=== PATIENT | female | born 1965 | race Caucasian/White ===

== ENCOUNTER 2025-04-15 07:09 | Outpatient (RCR) | payer OTHER, SELFPAY ==
--- NOTE | 2024-11-05 14:31 | PC.NURSE ---
Cardiac Rehab Orientation The following information was reviewed with the patient during Orientation: [ x] 1. Program rights and responsibilities [ x] 2. Attendance Policy [ x] 3. Patients insurance coverage and copayment [ x] 4. Patients current medication list, and purpose for medications [ x] 5. Patients Qualifying diagnosis and procedure history [ x] 6. Patient health history Patients completed the following forms during Orientation: [ x] 1. Knowledge Test [ x] 2. PHQ 9 [ x] 3. SF 36 [ x] 4. Rate your plate [ ] 5. COPD Assessment [ ] 6. Tobacco Use and Dependence Questionnaire Additional Comments: First visit scheduled for nov 07 2024 at 10 am
--- NOTE | 2024-11-06 07:43 | CR1_ITS ---
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 Electronically Signed On 11-11-2024 7:52:44 EDT by Shivam Brantley
--- NOTE | 2024-11-07 08:50 | CR1_ITS ---
The 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 Electronically Signed On 11-11-2024 7:53:03 EDT by Shivam Brantley
--- NOTE | 2024-12-05 07:54 | CR1_ITS ---
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 Electronically Signed On 12-05-2024 10:59:06 EDT by Shivam Brantley
--- NOTE | 2024-12-30 14:23 | CR1_ITS ---
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 Being inactive will further exacerbate her weakness. She is encouraged to return to cardiac rehablitation. Electronically Signed On 01-08-2025 10:19:13 EDT by Shivam Brantley
--- NOTE | 2025-01-30 08:45 | CR1_ITS ---
The [facility] Test Date: 2025-01-30 Pat Name: BASSEM JACOBS Department: Room: - Gender: Female Audiovisual Technician: : 1965 Requested By: CLAUS ORTEGA Order Number: [id number] Anca MD: CAROLE WOLF M.D. Interpretive Statements Patient may continue cardiac rehab as outlined in the treatment plan. Electronically Signed On 02-07-2025 10:23:44 EDT by CAROLE WOLF M.D.
--- NOTE | 2025-03-04 14:23 | CR1_ITS ---
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 Order Number: [id number] Anca MD: CAROLE WOLF M.D. Interpretive Statements Patient may continue cardiac rehab as outlined in the treatment plan. Electronically Signed On 03-19-2025 17:58:04 EDT by CAROLE WOLF M.D.
--- NOTE | 2025-04-01 08:37 | CR1_ITS ---
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 Order Number: [id number] Anca MD: CAROLE WOLF M.D. Interpretive Statements Patient may continue cardiac rehab as outlined in the treatment plan. Electronically Signed On 04-01-2025 20:05:15 EDT by CAROLE WOLF M.D.
--- NOTE | 2025-04-01 13:25 | PC.NURSE ---
utreach letter sent re: terminologist abscence from phase 2 rehab will follow up in 2 weeks if no response
--- NOTE | 2025-04-30 14:34 | PC.NURSE ---
outreach phone calls were made and patient stated she did want to return to rehab but was having difficulty with rides. We would love to see her back but she has been absent from rehab since 03-19. Outreach letter sent at this time, if no response by 05-22-25 patient will be discharged from the program due to non-attendance
--- NOTE | 2025-05-02 11:27 | CR1_ITS ---
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 Interpretive Statements Patient may continue cardiac rehab as outlined in the treatment plan. Electronically Signed On 05-02-2025 18:09:58 EDT by CAROLE WOLF M.D.
--- NOTE | 2025-05-16 07:29 | CR1_ITS ---
The [facility] Test Date: 2025-05-16 Pat Name: BASSEM JACOBS Department: Room: - Gender: Female Administrative Services Director: : 1965 Requested By: CAROLE WOLF M.D. Order Number: [id number] Anca MD: CAROLE WOLF M.D. Interpretive Statements Electronically Signed On 05-16-2025 19:19:13 EST by CAROLE WOLF M.D.
== END 2025-05-16 07:27 | disposition home or self-care (01) ==
LOC: CR 07:09
PROVIDERS: PCP Family Medicine
DX: Z95.2 Presence of prosthetic heart valve (principal)
CPT/HCPCS: 93798; G0239